=== PATIENT | female | born 1975 | race Two or more races ===

== ENCOUNTER 2022-10-10 20:28 | Emergency (ER) | payer OTHER, SELFPAY ==
--- NOTE | ~2022-10-10 | XR_ITS ---
X-RAY RIGHT ANKLE X-RAY RIGHT FOOT CLINICAL HISTORY: Fracture, pain. COMPARISON: No relevant prior studies are available for comparison. TECHNIQUE: 2 views of the right ankle and 3 views of the right foot. FINDINGS: Equivocal cortical irregularity of the anterior and medial surface of the tibial plafond. Otherwise, no significant osseous abnormality. Plantar calcaneal spurs. Diffuse nonspecific soft tissue thickening. No abnormal soft tissue calcifications or unexpected radiopaque foreign bodies. XR/XR ankle RT min 3V IMPRESSION: 1. Nonspecific cortical irregularity of the anterior and medial surface of the tibial plafond, a fracture is not excluded. Recommend correlation with point tenderness and if indicated further evaluation with CT. 2. Nonspecific diffuse soft tissue thickening.
--- NOTE | ~2022-10-10 | XR_ITS ---
X-RAY RIGHT ANKLE X-RAY RIGHT FOOT CLINICAL HISTORY: Fracture, pain. COMPARISON: No relevant prior studies are available for comparison. TECHNIQUE: 2 views of the right ankle and 3 views of the right foot. FINDINGS: Equivocal cortical irregularity of the anterior and medial surface of the tibial plafond. Otherwise, no significant osseous abnormality. Plantar calcaneal spurs. Diffuse nonspecific soft tissue thickening. No abnormal soft tissue calcifications or unexpected radiopaque foreign bodies. XR/XR foot RT min 3V IMPRESSION: 1. Nonspecific cortical irregularity of the anterior and medial surface of the tibial plafond, a fracture is not excluded. Recommend correlation with point tenderness and if indicated further evaluation with CT. 2. Nonspecific diffuse soft tissue thickening.
--- NOTE | ~2022-10-10 | CT_ITS ---
EXAMINATION: CT ankle RT wo IV con CLINICAL INFORMATION: Reason for Exam Equiv XR read, sig pain, mortis appears abnml COMPARISON: Radiographs performed 10/10/2022 TECHNIQUE: Multidetector CT imaging of the right ankle was performed without the use of intravenous contrast. Coronal and sagittal reformats created on an independent workstation were reviewed. This CT examination was performed using dose optimization techniques as appropriate, variously including the following: *Automated exposure control *Adjustment of mA and/or kV according to patient size (this includes techniques or standardized protocols for targeted exams where dose is matched to indication/reason for exam; i.e. extremities or head) *Use of iterative reconstruction technique DLP: 132 mGy-cm FINDINGS: No acute fracture or dislocation. There are small marginal osteophytes along the anterior tibial plafond and, and a more prominent marginal osteophyte along the anterior aspect of the medial malleolus which was annotated on the previous x-rays. Small osteophyte also present along the anterior distal fibula at the expected attachment of the tibiofibular ligament. Small marginal osteophytes along the anterior talar dome. Small os trigonum. Large plantar calcaneal enthesophyte. Small Achilles insertional enthesophytes. Stents are plantar tendons of the ankle and imaged foot are unremarkable. Achilles tendon intact. No joint effusion. CT/CT ankle RT wo IV con IMPRESSION: * No acute fracture or dislocation. * Degenerative osteophytic changes as described. * Large plantar calcaneal enthesophyte.
[2022-10-10 20:43] VITALS: BP 160/113; PULSE 92; RESP 20; TEMP 36.7; O2SAT 100; BMI 38.7
[2022-10-10 22:58] VITALS: BP 141/60; PULSE 75; RESP 18; TEMP 36.7; O2SAT 100
--- NOTE | 2022-10-10 23:46 | ED_ITS ---
HPI - Extremity Injury (Lower) General Chief Complaint: Extremity Injury, Lower Stated Complaint: Right foot pain twisted ankle Time Seen by Provider: 10/10/22 22:36 Source: patient and other Mode of arrival: ambulatory History of Present Illness HPI Narrative: 47-year-old female who rolled her right ankle earlier today while in [facility] and arrives here in excruciating pain that radiates over the right dorsum of her foot. Related Data Previous Rx's Medication Instructions Recorded ketorolac 10 mg tablet 10 mg PO Q6H PRN pain 5 days #20 10/11/22 tabs Allergies Allergy/AdvReac Type Severity Reaction Status Date / Time No Known Allergies Allergy Unverified 01/31/20 18:20 [No Known Allergies*] Review of Systems Review of Systems: Pertinent positives and negatives as stated in HPI [facility] Past Medical History Source: nursing notes reviewed Social History Social History Advance Directives: No Advance Directives Information Provided: No Physical Exam Vital Signs: Vital Signs: Last Vital Signs Temp 98.1 F 10/10/22 22:58 Pulse 75 10/10/22 22:58 Resp 18 10/10/22 22:58 BP 141/60 H 10/10/22 22:58 Pulse Ox 100 10/10/22 22:58 O2 Del Method Room Air 10/10/22 22:58 BMI result Body Mass Index 38.7 VITAL SIGNS: Reviewed. GENERAL: Well developed, well nourished, in no acute distress. HEAD: Normocephalic/atraumatic EYES: PERRLA, EOMI EARS: Ext canals without abnormality NOSE: Nares patent bilateral OROPHARYNX: no oral lesions noted, posterior pharynx clear NECK: Supple, no adenopathy LUNGS: Normal breath sounds. No adventitious sounds or accessory muscle use. SpO2<100> CARDIOVASCULAR: Regular rate and rhythm without noted murmurs ABDOMEN: Soft, non-tender, non-distended with bowel sounds. MUSCULOSKELETAL: No tenderness, deformities, or effusions noted on gross inspection. EXTREMITIES: No cyanosis, clubbing or edema; RIGHT FOOT: There is no tenderness to palpation at the medial malleolus, there is noted edema over the lateral malleolus, good movement of all toes there is no noted pain at midfoot and on palpation over proximal tibia/tibial plateau as well as fibular head there is no noted pain.. SKIN: Inspection of the skin reveals no rashes NEUROLOGIC: Alert and oriented x 4. Strength and sensation to light touch were grossly intact x 4. Medications Administered Discontinued Medications Generic Name Dose Route Start Last Admin Trade Name Shaheedq PRN Reason Stop Dose Admin Acetaminophen 975 mg 10/10/22 23:44 10/11/22 00:13 Acetaminophen 325 Mg Tablet PO 10/10/22 23:45 975 mg ONCE ONE Administration Ketorolac Tromethamine 15 mg 10/10/22 23:44 10/11/22 00:14 Ketorolac Tromethamine 15 Mg/Ml Vial IM 10/10/22 23:45 15 mg ONCE ONE Administration Oxycodone HCl 5 mg 10/10/22 23:44 10/11/22 00:13 Oxycodone Hcl Immed Release 5 Mg Tablet PO 10/10/22 23:45 5 mg ONCE ONE Administration Medical Decision Making Medical Decision Making MDM Narrative: 47-year-old female with suspected ankle sprain/strain, provided with combination analgesics as well oxycodone for pain control. Reviewed imaging equivocal for fracture so proceeded with CT of ankle which I agree with radiology's impression no evidence of acute fracture or dislocation. Patient was placed in Perez wrap, given crutches and discharged home in stable condition with instructions to follow-up with primary care provider on Tuesday. Differential Diagnosis Please see the discussion above Radiology Impression Radiologist Impression: My interpretation is in agreement with radiology's impression. Discharge Plan Discharge Clinical Impression: Ankle sprain and strain Patient Disposition: Home, Self-Care Instructions: Ankle Sprain (ED), Crutch Instructions (ED), R.I.C.E. Treatment (ED) Additional Instructions: 1. Tylenol 1000 mg, orally, every 6 hours as needed pain control. Do not exceed 4000 mg within 24 hours. 2. Please review the instructions you have received as they outline the use of ice, crutches. 3. Follow-up with your primary care provider on Tuesday. Prescriptions: New ketorolac 10 mg tablet 10 mg PO Q6H PRN (Reason: pain) 5 Days Qty: 20 0RF Rx Instructions: Patient received Toradol in the emergency room. Referrals: Jaspal Wallace III, MD [Primary Care Provider] -
[2022-10-11] MEDS: oxyCODONE HCl Immed Release 5 MG TABLET PO (00:13)
[2022-10-11] MEDS: Acetaminophen 325 MG TABLET 975 MG PO (00:13)
[2022-10-11] MEDS: Ketorolac Tromethamine 15 MG/ML VIAL IM (00:14)
== END 2022-10-11 02:33 | disposition home or self-care (01) ==
PROVIDERS: Emergency Provider Student in an Organized Health Care Education/Training Program; PCP Internal Medicine
DX: S93.401A Sprain of unspecified ligament of right ankle, initial encounter (principal); M25.571 Pain in right ankle and joints of right foot; X50.1XXA Overexertion from prolonged static or awkward postures, initial encounter; Y93.9 Activity, unspecified; Y92.9 Unspecified place or not applicable; Y99.9 Unspecified external cause status
CPT/HCPCS: 73610; 73630; 73700; 96372; 99284; J1885

== ENCOUNTER 2023-12-05 09:21 | Day surgery (SDC) | payer OTHER, SELFPAY ==
[2023-12-01 13:51] VITALS: BMI 35.7
[2023-12-05 10:50] VITALS: BP 126/50; PULSE 61; RESP 18; TEMP 36.8; O2SAT 97
[2023-12-05] MEDS: Cyclopentolate 1 % Ophth Sol 2 ML DRPBTL 1 DROP EYE-LEFT ×3 (10:59→11:37)
[2023-12-05] MEDS: Tetracaine HCl/PF 0.5% Oph Sol 4 ML DROPS 1 DROP EYE-LEFT (10:59)
[2023-12-05] MEDS: Tropicamide 1 % Ophth Sol 3 ML BTL 1 DROP EYE-LEFT ×3 (10:59→11:37)
[2023-12-05] MEDS: Phenylephrine HCL 2.5% Oph SoL 2 ML BOTTLE 1 DROP EYE-LEFT ×3 (11:00→11:37)
[2023-12-05] MEDS: Ketorolac Tromethamine 0.5% Op 10 ML DROPS 1 DROP EYE-LEFT ×3 (11:00→11:37)
--- NOTE | 2023-12-05 11:21 | P.CONAN_ITS ---
HPI - Anesthesia Eval Consult details Narrative: 48 yo F presenting for left intraocular lens implant. [facility] Past Medical History Medical History Blindness of left eye Anxiety Palpitations Elevated cholesterol GERD (gastroesophageal reflux disease) Congenital cataract Migraine HTN (hypertension) Family History Family history of problems with anesthesia: No Surgical History Surgical History Hx of tubal ligation Hx of eye surgery History of Problems with Anesthesia: No Social History Social History (Updated 11/30/23 @ 10:40 by Martita Dumont RN) Patient Tobacco Use Status: Current everyday Tobacco user Tobacco use type: Cigarette Cigarettes Per Day: 10 Use of substances other than those prescribed or required for medical reasons: No Advance Directives: No (unknown) Advance Directives Information Provided: Yes Advance Directives on File: No Meds Allergies Allergy/AdvReac Type Severity Reaction Status Date / Time No Known Allergies Allergy Verified 12/05/23 11:03 [No Known Allergies*] Active Medications: Current Medications Povidone Iodine (Povidone Iodine 5 % Ophth Soln 30 Ml Bottle) 1 appl EYE-LEFT PREOP PRN PRN Reason: Pre-Op Surgical Implant Prophy Home Medications ?Medication ?Instructions ?Recorded ?Confirmed ?Last Taken ?Type ergocalciferol (vitamin D2) 1,250 1,250 mcg PO QWEEK 11/29/23 11/29/23 Unknown History mcg (50,000 unit) capsule ibuprofen 800 mg tablet 800 mg PO Q8H PRN pain 11/29/23 11/29/23 Unknown History lisinopril 5 mg tablet 5 mg PO DAILY 11/29/23 11/29/23 Unknown History sumatriptan succinate 100 mg tablet 100 mg PO QD-BID PRN Migraine 11/29/23 11/29/23 Unknown History Headache topiramate 50 mg tablet 50 mg PO DAILY 11/29/23 11/29/23 Unknown History acetaminophen 500 mg tablet 1,000 mg PO Q6H PRN Pain 12/01/23 12/01/23 Unknown History fluoxetine 10 mg capsule 10 mg PO DAILY 12/01/23 12/01/23 Unknown History magnesium oxide 400 mg PO DAILY 12/01/23 12/01/23 Unknown History riboflavin (vitamin B2) 400 mg 400 mg PO DAILY 12/01/23 12/01/23 Unknown History tablet Exam Exam Date and Time: December 05, 2023 1123 Height,Weight and Vital Signs: Height 5 ft 1 in Weight 85.729 kg Last Vital Signs Temp 98.2 F 12/05/23 10:50 Pulse 61 12/05/23 10:50 Resp 18 12/05/23 10:50 BP 126/50 L 12/05/23 10:50 Pulse Ox 97 12/05/23 10:50 O2 Del Method Room Air 12/05/23 10:50 Airway Mallampati Class: I TM Dist: >3cm Neck ROM: Full Loose/Missing/Broken Teeth: No (patient denies any loose or broken teeth) Heart: S1S2 Lungs: CTAB Assessment and Plan Assessment Anesthesia Assessment: Anesthesia Plan Discussed and Chart Reviewed Final Anesthetic Review Family History of Problems with Anesthesia: No History of Problems with Anesthesia: No NPO: Yes ASA Class: II Final Preanesthetic Review: No Changes in Pt Med Stat, Meds/Allgs Chart Reviewed, Consent Obtained/Reviewed and Anes Risks/Benef Reviewed Patient Risk: Low Procedure Risk: Low Anesthetic Plan Anesthetic Plan: MAC: and Agree w/ Assess. and Plan Disposition: Standard PACU
[2023-12-05] MEDS: Lactated Ringers 500 ML 50 ML IV (11:36)
--- NOTE | 2023-12-05 12:05 | MHC.SHP ---
Pre-Procedural Eval Section A - 24 Hr Update-Section A only Date of Service: 12/05/23 The patient is an INPATIENT: No Changes since office visit: No Cold of Flu in the past 2 weeks, No New Medical Problems, No Changes in Medication and No Patient answered all questions The patient has been examined within 24 hours of the surgical procedure. The History & Physical has been completed within 30 days and I have reviewed it.: Yes Section B - Complete if H&P > 30 days Chief Complaint: Aphakia, left eye Allergies: Allergies Allergy/AdvReac Type Severity Reaction Status Date / Time No Known Allergies Allergy Verified 12/05/23 11:03 [No Known Allergies*] Plan Diagnosis/Plan: Unchanged I have reviewed the history and physical and performed a pertinent physical examination on my patient. No changes have occurred unless specified. Time Spent With Patient Time: Total time managing care of this patient today ____ minutes.
--- NOTE | 2023-12-05 12:06 | HO.PNOPHT ---
Ophthalmology Procedure Procedure Date of Service: 12/05/23 Ophthalmology Viscoelastic: Healon Duet Dual Pack Pro Ophthalmology Lenses: IOL Acrysof MP - [id number] (13) Procedure Notes: PREOPERATIVE DIAGNOSIS: Decreased visual acuity left eye secondary to aphakia POSTOPERATIVE DIAGNOSIS: Same PROCEDURE: Left synichialysis with intraocular lens insertion SURGEON: Rickie Gallagher M.D. ANESTHESIA: Topical/MAC ESTIMATED BLOOD LOSS: None COMPLICATIONS: None After obtaining informed consent, the patient was brought to the operation room suite and placed in the supine position. After adequate sedation per anesthesia, topical drops of Tetracaine were given to the left eye. The eye was then prepped and draped in the usual sterile fashion. The operating room microscope was then positioned over the operative eye and a lid speculum placed. A paracentesis was created. Viscoelastic was then instilled into the anterior chamber. A three plane incision was then created temporally, utilizing a 2.85 mm keratome. Synichialysis was preformed utilizing intraocular scissors and viscoelastic. Poor dilation from required placement of a Malyugin ring. A anterior victrectomy was preformed. Viscoat elastic was instilled into the anterior chamber and into the sulcus. Placement of a posterior chamber intraocular lensinto the sulcus was accomplished without difficulty. The residual Viscoat elastic was then removed utilizing the vitrector. The wound was check and found to be watertight. The patient tolerated the procedure well and the lid speculum was removed. Intracameral injection of Vigamox 0.1 mL followed by a subtenon injection of Kenalog-40 0.2 mL were administered. The patient will be seen in the a.m.
[2023-12-05 13:35] VITALS: BP 162/58; PULSE 41; RESP 16; TEMP 36.2; O2SAT 98
[2023-12-05 13:40] VITALS: BP 184/75; PULSE 45; RESP 16; O2SAT 100
[2023-12-05 13:56] VITALS: BP 144/58; PULSE 51; RESP 16; TEMP 36.2; O2SAT 99
== END 2023-12-05 13:57 | disposition home or self-care (01) ==
PROVIDERS: PCP Internal Medicine; Visit Provider Ophthalmology
PROC: (CPT 66986; principal; 2023-12-05 11:40)
DX: H27.02 Aphakia, left eye (principal); H53.8 Other visual disturbances; H53.002 Unspecified amblyopia, left eye; H54.62 Unqualified visual loss, left eye, normal vision right eye; Q12.0 Congenital cataract; H18.413 Arcus senilis, bilateral; H11.153 Pinguecula, bilateral; H11.133 Conjunctival pigmentations, bilateral; Z79.899 Other long term (current) drug therapy; Z88.8 Allergy status to other drugs, medicaments and biological substances; Z98.890 Other specified postprocedural states; F17.210 Nicotine dependence, cigarettes, uncomplicated
CPT/HCPCS: 66982; J2250; J3010; J3301; V2630